=== PATIENT | male | born 1960 ===

== ENCOUNTER 2023-05-10 23:45 | Emergency (ER) | payer SELFPAY ==
[~2023-05-10] VITALS: Ht 172.7 cm; Wt 80.0 kg
[2023-05-10 23:52] VITALS: BP 140/72; PULSE 90; RESP 17; TEMP 98.2
== END 2023-05-11 01:05 | disposition home or self-care (01) ==
LOC: EMS 23:47
DX: R10.9 Unspecified abdominal pain (principal); Z53.21 Procedure and treatment not carried out due to patient leaving prior to being seen by health care provider
CPT/HCPCS: 99281; Z7502